=== PATIENT | male | born 1935 | race Caucasian/White ===

== ENCOUNTER 2020-09-30 00:36 | Emergency (ER) | payer MEDICARE ==
[~2020-09-30] VITALS: Ht 177.8 cm; Wt 93.2 kg
[2020-09-30] MEDS ORDERED: APAP W/CODEINE1 TA2 PO (01:01)
[2020-09-30] MEDS ORDERED: CHILDREN'S ASPI81 M1 PO (01:02)
[2020-09-30] MEDS ORDERED: LIPITOR 20 MG T20 M1 PO (01:02)
[2020-09-30] MEDS ORDERED: DIVALPROEX SOD125 MG PO (01:02)
[2020-09-30] MEDS ORDERED: FAMOTIDINE 20 M20 MG PO (01:03)
[2020-09-30] MEDS ORDERED: PROSCAR 5MG TABL5 MG PO (01:03)
[2020-09-30] MEDS ORDERED: PREGABALIN50 MG PO (01:03)
[2020-09-30] MEDS ORDERED: HYDROCHLOROTHIA25 M1 PO (01:03)
[2020-09-30] MEDS ORDERED: FLOMAX0.4 MG PO (01:04)
[2020-09-30] MEDS ORDERED: TOPAMAX100 MG PO (01:04)
[2020-09-30] MEDS ORDERED: VITAMIN D325 MC3 PO (01:05)
[2020-09-30] MEDS ORDERED: LOPERAMIDE 2 MG2 MG PO (01:05)
[2020-09-30 03:50] VITALS: BP 131/80
== END 2020-09-30 03:50 | disposition home or self-care (01) ==
LOC: M.ERS 00:36
DX: S00.83XA Contusion of other part of head, initial encounter (principal); S10.83XA Contusion of other specified part of neck, initial encounter; I10 Essential (primary) hypertension; Z79.899 Other long term (current) drug therapy; Z79.82 Long term (current) use of aspirin; W06.XXXA Fall from bed, initial encounter; Y93.89 Activity, other specified; Y92.89 Other specified places as the place of occurrence of the external cause; Y99.9 Unspecified external cause status

== ENCOUNTER 2020-11-10 22:08 | Emergency (ER) | payer MEDICARE ==
[~2020-11-10] VITALS: Ht 165.1 cm; Wt 81.7 kg
[~2020-11-10 22:08] MED LIST: APAP W/CODEINE1 TA2 PO; CHILDREN'S ASPI81 M1 PO; DIVALPROEX SOD125 MG PO; FAMOTIDINE 20 M20 MG PO; FLOMAX0.4 MG PO; HYDROCHLOROTHIA25 M1 PO; LIPITOR 20 MG T20 M1 PO; LOPERAMIDE 2 MG2 MG PO; PREGABALIN50 MG PO; PROSCAR 5MG TABL5 MG PO; TOPAMAX100 MG PO; VITAMIN D325 MC3 PO
[2020-11-10 22:10] VITALS: BP 136/75
[2020-11-10] MEDS ORDERED: TRAZODONE HCL50 MG PO (22:14)
[2020-11-10] MEDS ORDERED: VITAMIN D310 MC2 PO (22:14)
[2020-11-11 00:53] VITALS: BP 128/82
== END 2020-11-11 00:53 | disposition home or self-care (01) ==
LOC: M.ERS 22:08 → M.TBA-ER 22:35 → M.ERS 11-11 00:53
DX: Z04.3 Encounter for examination and observation following other accident (principal); F03.90 Unspecified dementia, unspecified severity, without behavioral disturbance, psychotic disturbance, mood disturbance, and anxiety; I10 Essential (primary) hypertension; Z79.899 Other long term (current) drug therapy; Z79.82 Long term (current) use of aspirin; W19.XXXA Unspecified fall, initial encounter; Y93.89 Activity, other specified; Y92.128 Other place in nursing home as the place of occurrence of the external cause; Y99.8 Other external cause status